=== PATIENT | female | born 1945 | race Caucasian/White ===

== ENCOUNTER 2025-05-13 13:28 | Emergency (ER) | payer OTHER, SELFPAY ==
[2025-05-13 13:30] VITALS: BP 187/75
[2025-05-13 15:02] LABS: ALT (SGPT) 19 U/L (0-35); AST (SGOT) 28 U/L (14-36); Albumin 4.4 g/dl (3.5-5.0); Alkaline Phosphatase 64 U/L (38-126); Blood Urea Nitrogen 17 mg/dl (7-17); Calcium 9.6 mg/dl (8.4-10.2); Carbon Dioxide 13 mmol/L (22-30); Chloride 109 mmol/L (98-107); Glucose 98 mg/dl (70-99); Lipase 152 U/L (23-300); Potassium 4.0 mmol/L (3.5-5.1); Sodium 134 mmol/L (135-145); Total Protein 7.5 g/dl (6.3-8.2); eGFR > 60.00
[2025-05-13 15:16] LABS: Urine Character Cloudy (Clear)
[2025-05-13 15:49] LABS: Urine Urothelial Cell 0-2 /LPF (FEW)
[2025-05-13 15:50] LABS: Urine Red Blood Cell >100 /HPF (0-2); Urine White Cell 0-2 /HPF (0-5)
--- NOTE | 2025-05-13 17:45 | ED.GENMED ---
History of Present Illness
General
Chief Complaint: Abdominal Symptoms
Source: patient and family
Exam Limitations: none
Time Seen by Provider: 05/13/25 17:09
Nursing documentation reviewed up to this point in time: agreed with
History of Present Illness
History of Present Illness:
Patient is a 79-year-old female who presents to the emergency department with lower abdominal pain. Patient states symptoms began gradually this morning around 10 AM and describes a constant pain in her left lower abdomen. She denies any radiation
into her back or her left leg. She also reports feeling a sense of urinary urgency however has been able to urinate without difficulty. No dysuria or hematuria. Patient reports 1 episode of vomiting and loose stool this morning as well as nausea.
No fever, chills, chest pain or shortness of breath.
She has a history of diverticulitis however states this feels different. No history of kidney stones.
Review of Systems
Review of Systems
Allergies reviewed?: Yes
All Other Systems: ROS reviewed and negative except as documented in HPI and ROS
Phy Exam
Physical Exam
Physical Exam:
Vitals: Hypertensive, otherwise vital signs stable. Afebrile
General: Patient is well appearing, no acute distress
Skin: Warm and dry, no rashes or lesions
Head: Normocephalic, atraumatic
Eyes: Sclera nonicteric.
Throat: Protecting airway
Neck: Normal ROM, no cervical spine tenderness, no meningismus
Cardiac: Regular rate and rhythm, no murmurs.
Pulm: Normal respiratory effort. Lungs clear bilaterally
Abdomen: Mild tenderness in left lower abdomen. No rebound tenderness or guarding. No CVA tenderness.
Extremities: No evidence of cyanosis or edema
Neuro: AAOx3. Grossly intact
Psychiatric: Normal affect.
Course
Orders/Labs/Results
Orders:
Orders
05/13/25 13:33
IV Insert/Care/Rem.- Treatment PRN
Straight cath- Treatment ONCE
05/13/25 14:01
Comprehensive Metabolic Panel Urgent
Lipase Urgent
05/13/25 14:10
Urinalysis Reflex To Culture Urgent
Date Specimen was Collected: 05/13/25
Time Specimen was Collected: 13:33
Urine Microscopic Reflex Cult Urgent
Urine Culture Urgent
ELIO Source: U
Specimen Description:
Date Specimen was Collected: 05/13/25
Time Specimen was Collected: 13:33
05/13/25 17:27
0.9% Sodium Chloride 1000 ml [Nss] 1,000 ml IV BOLUS
Ketorolac [Toradol] 15 mg IV NOW STA
05/13/25 17:29
CT Abd/pelvis W Iv Cont Urgent
Comment:
Reason For Exam: LLQ pain, hematuria
05/13/25 19:27
Complete Blood Count/With Diff Urgent
05/13/25 21:01
BMP [Basic Metabolic Panel] Urgent
05/13/25 22:11
Ketorolac [Toradol] 15 mg IV NOW STA
Tamsulosin [Flomax] 0.4 mg PO NOW STA
05/13/25 22:21
Add On - Microbiology Urgent
Tests Added?: urine culture
Abnormal Lab Results
05/13/25 05/13/25 05/13/25
14:01 14:10 19:27
WBC 12.0 H 10^3/uL
(4.8-10.8)
Absolute Neuts (auto) 11.2 H 10^3/uL
(1.4-6.5)
Absolute Lymphs (auto) 0.5 L 10^3/uL
(1.2-3.4)
Neutrophils % 93.0 H %
(42.2-75.2)
Lymphocytes % 4.5 L %
(20.5-51.1)
Sodium 134 L mmol/L
(135-145)
Chloride 109 H mmol/L
(98-107)
Carbon Dioxide 13 L* mmol/L
(22-30)
Urine Ketones 3+ A
(Negative)
Ur Occult Blood Reflex 4+ A
(Negative)
Urine RBC >100 A /HPF
(0-2)
Urine Bacteria (Reflex) Moderate A
(Negative)
Urine Albumin (Reflex) 2+ A
(Neg - Trace)
05/13/25
21:01
WBC
Absolute Neuts (auto)
Absolute Lymphs (auto)
Neutrophils %
Lymphocytes %
Sodium 132 L mmol/L
(135-145)
Chloride
Carbon Dioxide 16 L mmol/L
(22-30)
Urine Ketones
Ur Occult Blood Reflex
Urine RBC
Urine Bacteria (Reflex)
Urine Albumin (Reflex)
05/13/25 19:27
05/13/25 21:01
Vital Signs
Initial and Last Documented VS:
Initial Vital Signs
Temp Pulse Resp BP Pulse Ox
97.9 F 61 18 187/75 100
05/13/25 13:30 05/13/25 13:30 05/13/25 13:30 05/13/25 13:30 05/13/25 13:30
Last Documented Vital Signs
Temp Pulse Resp BP Pulse Ox
97.9 F 74 16 180/71 100
05/13/25 13:30 05/13/25 22:00 05/13/25 22:00 05/13/25 22:00 05/13/25 22:00
MDM/Problems Addressed
Differential Diagnosis Includes:
Not limited to: Diverticulitis, renal colic, pyelonephritis, cystitis, malignancy, etc.
MDM/Problems Addressed:
79-year-old female with left lower abdominal pain and urinary urgency which started gradually this morning and has been persistent. No fevers or dysuria. No chest pain or shortness of breath. Patient has stable vital signs. On exam, she appears
well and nontoxic. Her abdomen is soft with mild tenderness in left lower quadrant without rebound. Cardio/pulmonary assessment unremarkable. Differential includes possible renal colic, pyelonephritis/cystitis. Also possible diverticulitis or
viral illness
Prior to my evaluation, basic labs were sent CBC pending however, she does reveal significant acidosis with bicarb of 13. Unclear etiology for this as she has not had significant GI losses she is not hyperventilating and appears in no distress.
Will give IV fluids, treat pain and repeat lab work. Will check CT scan abdomen/pelvis.
Update: Labs reveal mild leukocytosis. Chemistry panel with persistent nonanion gap acidosis with bicarb of 16 after about mL IV fluids. UA with > 100 RBCs, however no evidence of acute infection. CT scan showed small left UVJ stone with hydro,
which I suspect to be the etiology of patient's presenting pain. 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 Do not feel related to patient's pain today.
Patient's pain is well-controlled after dose of Toradol. Unclear etiology of acidosis on lab work as she does not take any medications. She overall appears well and nontoxic. This may be chronic�no indication for admission to the hospital. Will
discharge home with pain control, Flomax, urology follow-up. Advised patient to stay well-hydrated and have repeat BMP with primary care in 1 week to ensure acidosis resolves. Return precautions discussed. Patient comfortable with plan.
Chronic conditions affecting care:
History of diverticulitis
Acute Exacerbation and/or Progression of Chronic Illness:
N/A
*Radiology
Radiology exam reviewed: radiology read reviewed
*Pulse Oximetry
SaO2: 100
Oxygen Mode of Delivery: Room air
Patient hypoxic: no
*EKG
Interpreted by ED Provider?: NA
*In Home Caregiver Interpretation
Rate: In Home Caregiver- N/A
*Critical Care Note
Total Time (30-74mins, 75-104mins- exclusive of procedures): Not Applicable
ED Attending Note
-
Portions of this chart may have been created with voice recognition software.� Occasional wrong word or��sound alike� substitutions may have occurred due to the inherent limitations of voice recognition software.
Discharge Plan
Departure
Patient Disposition: Home (Routine Discharge)
Date of Disposition: 05/13/25
Time of Disposition: 22:20
Patient with high blood pressure during this ER visit?: Yes
Condition: Good
Discharge Problem:
Calculus of ureterovesical junction (UVJ)
Instructions: Kidney stones in adults - ED (DC), BLOOD PRESSURE
Prescriptions:
New
tamsulosin 0.4 mg capsule
0.4 mg PO DAILY Qty: 14 0RF
oxycodone 5 mg tablet
5 mg PO Q6H PRN (Reason: Pain) Qty: 10 0RF
Referrals:
Goldy Damon MD [Active, Urology]
Ritesh Ortiz MD [Family Provider, Internal Medicine]
Activity Restrictions/Additional Instructions:
RETURN TO THE EMERGENCY DEPARTMENT FOR ANY INTRACTABLE PAIN, INABILITY TO URINATE, FEVERS OR CHILLS, INTRACTABLE NAUSEA/VOMITING, WORSENING IN CURRENT SYMPTOMS, OR ANY OTHER CONCERNS
- As discussed�your CT scan showed a 2.5 mm stone in your left distal ureter�this is likely the cause of your symptoms today. 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 Please have this followed up with your [facility] H[facility]PITALIST.
- For pain management�you can take ibuprofen at home and alternate with Tylenol. I sent a prescription for oxycodone which you can take for severe pain. This may cause drowsiness you should not take prior to driving. Take Flomax daily until you
pass the stone. Continue to stay very well-hydrated and strain your urine.
- Your CO2 level was low on your lab work today. Your unsure the exact cause of this. Please have your primary care provider recheck this value in 1 week to ensure it normalizes
- You should also follow-up with urology for further evaluation/management of your kidney stone
Monitor your symptoms closely and return to the emergency department with any acute worsening/new symptoms or any other concerns
Interventions
Interventions:
*General Assessment Last Done: 05/13/25 17:51
*Neglect/Abuse Screening Last Done: 05/13/25 17:51
*ED COVID-19 Vaccine History Last Done: 05/13/25 13:30
*ED Influenza Vaccine History Last Done: 05/13/25 13:30
[facility] Risk Assessment Tool Last Done: 05/13/25 17:50
*Risk Screen - Suicide (C-SSRS) Last Done: 05/13/25 13:30
*Nursing Disposition Last Done: 05/13/25 23:00
TB-Bwoawq-Ncmrtemwpp Assessment Last Done: 05/13/25 17:50
Discharge Date and Time
Discharge Date/Time: 05/13/25 23:00
Print Language: ETHIOPIAN
[2025-05-13] MEDS: TORADOL 15 MG IV ×2 (17:57→22:44)
[2025-05-13] MEDS: NSS 1000 IV (17:57)
[2025-05-13 18:15] VITALS: BMI 29.1
[2025-05-13 19:37] LABS: Hematocrit 40.2 % (37.0-47.0); Hemoglobin 13.4 g/dL (12.0-16.0); Mean Corp Hgb Conc. 33.3 g/dL (33.0-37.0); Mean Corpuscular Volume 92.6 fL (81.0-99.0); Nucleated Red Blood Cells % 0 %; Platelet Count 294 10^3/uL (130-400); Red Cell Dist. Width 13.4 % (11.5-14.5)
[2025-05-13 21:00] VITALS: BP 146/65
[2025-05-13 21:31] LABS: Blood Urea Nitrogen 17 mg/dl (7-17); Calcium 9.3 mg/dl (8.4-10.2); Carbon Dioxide 16 mmol/L (22-30); Chloride 105 mmol/L (98-107); Estimated Creatinine Clearance 53 ml/min; Glucose 89 mg/dl (70-99); Potassium 4.5 mmol/L (3.5-5.1); Sodium 132 mmol/L (135-145); eGFR > 60.00
[2025-05-13 22:00] VITALS: BP 180/71
[2025-05-13] MEDS: FLOMAX 0.4 MG PO (22:44)
== END 2025-05-13 23:00 | disposition home or self-care (01) ==
LOC: EMR 13:28
PROVIDERS: Emergency Medicine; Physician Assistant; EMERGENCY PHYSICIAN Emergency Medicine; FAMILY PHYSICIAN Internal Medicine
DX: N20.2 Calculus of kidney with calculus of ureter (principal); R11.2 Nausea with vomiting, unspecified; R39.15 Urgency of urination; R03.0 Elevated blood-pressure reading, without diagnosis of hypertension; K57.92 Diverticulitis of intestine, part unspecified, without perforation or abscess without bleeding; Z96.653 Presence of artificial knee joint, bilateral
CPT/HCPCS: 99284; 96375; 96361; 96374; 74177; 80048; 80053; 81003; 81015; 83690; 85025; 87086; Q9967